=== PATIENT | male | born 1970 | race Caucasian/White ===

== ENCOUNTER 2018-07-13 07:17 | Emergency (ER) | payer BC ==
[2018-07-13] MEDS ORDERED: KETOROLAC TROMETHAMINE 60 MG/2 ML VIAL IM ONE (07:36)
--- NOTE | 2018-09-04 13:32 | Diagnostic Imaging Report ---
OCTAVIA SUGGS [facility] [address] [facility] [address] [place], [place]. [address] Report Submission Date: Jul 13, 2018 7:53:13 AM CDT Patient Study Name: ZENAIDA ALBA Date: Jul 13, 2018 7:39:21 AM CDT Modality Type: DX Gender: M Description: CHEST 2VIEW : 70 Institution: [facility] Physician: OCTAVIA SUGGS Chest two views History: Fall Findings: The lungs are hyperinflated. Healed right rib fractures are present. There is no infiltrate, pleural effusion, or pneumothorax. Epigastric surgical clips are present. Heart size and pulmonary vascularity are normal. Impression: Chronic obstructive pulmonary disease without acute abnormality. Electronically signed on Jul 13, 2018 7:53:13 AM CDT by: Peter HILLMAN
--- NOTE | 2018-09-04 13:33 | Diagnostic Imaging Report ---
OCTAVIA SUGGS [facility] [address] [facility] [address] [address] Report Submission Date: Jul 13, 2018 7:54:34 AM CDT Patient Study Name: ZENAIDA ALBA Date: Jul 13, 2018 7:40:00 AM CDT Modality Type: DX Gender: M Description: RT HIP 2VIEW COMPLETE : 70 Institution: [facility] Physician: OCTAVIA SUGGS Right hip two views History: Pain after fall Findings: Right femoral head sclerosis raises the possibility of avascular necrosis without subchondral collapse. There is no evidence of fracture or dislocation. 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 Recommend MRI and orthopedic follow-up. Electronically signed on Jul 13, 2018 7:54:34 AM CDT by: Peter HILLMAN
== END 2018-07-13 08:44 ==
LOC: ED 07:17
DX: M94.0 Chondrocostal junction syndrome [Tietze] (principal); M25.551 Pain in right hip
CPT/HCPCS: 71020; 73502; 96372; 99283; 99284; J1885